=== PATIENT | male | born 1935 | race Caucasian/White ===

== ENCOUNTER 2017-08-11 10:01 | Emergency (ER) | payer OTHER, BC ==
[2017-08-11 10:09] VITALS: BP 145/89; TEMP 97.5; BMI 28.1
[2017-08-11] MEDS ORDERED: ACETAMINOPHEN 325 MG TABLET (FP) PO ONE (10:40)
[2017-08-11] MEDS ORDERED: ACETAMINOPHEN 325 MG TABLET (FP) ONE (10:48)
--- NOTE | 2017-08-11 10:48 | PDOC ---
History of Present Illness - History of Present Illness Initial Comments: 08/11/17 10:50 81 y/o M with a PMH of HTN, BPH presents to the ED with left sided chest pain for 3 days. Patient states that the pain is worse when lying down. He reports it is intermittent and reproducible. He states the pain does not radiate, and describes it as an achy, dull pain. He had a stress test earlier this year, which was normal. PCP: Dr. Riggs [employer] Curator: Dr. Man Shackler: Dr. Drummond <Natalya Young - Last Filed: 08/11/17 11:44> - General History Source: Patient Exam Limitations: No Limitations <Errol Pop - Last Filed: 08/11/17 12:17> - General Chief Complaint: Chest Pain Stated Complaint: CHEST DISCOMFORT Time Seen by Provider: 08/11/17 10:26 Past History <Natalya Young - Last Filed: 08/11/17 11:44> - Past Medical History COPD: No Disorders: Yes (BPH) HTN: Yes - Surgical History Abdominal Surgery: Yes (hernia repair) - Suicide/Smoking/Psychosocial Hx Smoking History: Never smoked Hx Alcohol Use: Yes (RARE) Drug/Substance Use Hx: No Substance Use Type: None <Errol Pop - Last Filed: 08/11/17 12:17> - Past Medical History Allergies/Adverse Reactions: Allergies Allergy/AdvReac Type Severity Reaction Status Date / Time No Known Allergies Allergy Verified 08/11/17 10:09 Home Medications: Ambulatory Orders Amlodipine Besylate [Norvasc -] 5 mg PO DAILY 03/01/14 Metoprolol Succinate [Toprol Xl] 100 mg PO DAILY 03/01/14 Doxazosin Mesylate 2 mg PO HS 08/11/17 Solifenacin Succinate [Vesicare -] 10 mg PO DAILY 08/11/17 Review of Systems - Review of Systems Comments:: 08/11/17 10:50 GENERAL/CONSTITUTIONAL: No fever or chills. No weakness. HEAD, EYES, EARS, NOSE AND THROAT: No change in vision. No ear pain or discharge. No sore throat. CARDIOVASCULAR: (+) left sided chest pain. No shortness of breath. RESPIRATORY: No cough, wheezing, or hemoptysis. GASTROINTESTINAL: No nausea, vomiting, diarrhea or constipation. GENITOURINARY: No dysuria, frequency, or change in urination. MUSCULOSKELETAL: No joint or muscle swelling or pain. No neck or back pain. SKIN: No rash NEUROLOGIC: No headache, vertigo, loss of consciousness, or change in strength/ sensation. ENDOCRINE: No increased thirst. No abnormal weight change. HEMATOLOGIC/LYMPHATIC: No anemia, easy bleeding, or history of blood clots. ALLERGIC/IMMUNOLOGIC: No hives or skin allergy. <Joey Youngdwight Brooks - Last Filed: 08/11/17 11:44> *Physical Exam - Vital Signs Last Vital Signs Temp Pulse Resp BP Pulse Ox 97.5 F L 79 18 145/89 98 08/11/17 10:05 08/11/17 10:05 08/11/17 10:05 08/11/17 10:05 08/11/17 10:05 - Physical Exam Comments: 08/11/17 10:50 GENERAL: Awake, alert, and fully oriented, in no acute distress HEAD: No signs of trauma EYES: PERRLA, EOMI, sclera anicteric, conjunctiva clear ENT: Auricles normal inspection, hearing grossly normal, nares patent, oropharynx clear without exudates. Moist mucosa NECK: Normal ROM, supple, no lymphadenopathy, JVD, or masses LUNGS: Breath sounds equal, clear to auscultation bilaterally. No wheezes, and no crackles HEART: Regular rate and rhythm, normal S1 and S2, no murmurs, rubs or gallops CHEST: Reproducible left upper chest pain ABDOMEN: Soft, nontender, normoactive bowel sounds. No guarding, no rebound. No masses EXTREMITIES: Normal range of motion, no edema. No clubbing or cyanosis. No cords, erythema, or tenderness NEUROLOGICAL: Cranial nerves II through XII grossly intact. Normal speech, normal gait SKIN: Warm, Dry, normal turgor, no rashes or lesions noted. <Joey Youngdwight Brooks - Last Filed: 08/11/17 11:44> - Vital Signs Last Vital Signs Temp Pulse Resp BP Pulse Ox 97.5 F L 79 18 145/89 98 08/11/17 10:05 08/11/17 10:05 08/11/17 10:05 08/11/17 10:05 08/11/17 10:05 <Errol Pop - Last Filed: 08/11/17 12:17> Heart Score/ECG Review - History History: Slightly suspicious - Electrocardiogram EKG: Normal - Age Age: >/= 65 - Risk Factors Risk Factors Heart Score: Yes Hx Hypertension Based on the list above the patient has:: 1-2 risk factors #1 ECG reviewed & interpreted by me at: 10:05 08/11/17 10:42 NSR 71, TWI III, no std/norman, normal axis, normal intervals, QTC 421 msec <Errol Pop - Last Filed: 08/11/17 12:17> ED Treatment Course - LABORATORY CBC & Chemistry Diagram: 08/11/17 10:43 08/11/17 10:43 - RADIOLOGY Radiograph Interpretation: 08/11/17 11:44 Chest XR reported by Dr. Ernesto Allen Impression: No acute chest pathology - Medications Given in the ED: ED Medications Discontinued Medications Generic Name Dose Route Start Last Admin Trade Name Freq PRN Reason Stop Dose Admin Acetaminophen 650 mg 08/11/17 10:40 08/11/17 10:47 Tylenol - PO 08/11/17 10:41 650 mg ONCE ONE Administration <Natalya Young A - Last Filed: 08/11/17 11:44> - LABORATORY CBC & Chemistry Diagram: 08/11/17 10:43 08/11/17 10:43 - RADIOLOGY Radiology Studies Ordered: Category Date Time Status CHEST X-RAY PORTABLE* [RAD] Stat Radiology 08/11/17 10:40 Ordered <Errol Pop - Last Filed: 08/11/17 12:17> Medical Decision Making - Medical Decision Making 08/11/17 10:42 A portion of this note was documented by scribe services under my direction. I have reviewed the details of the note, within reason, and agree with the documentation with the following case summary and management plan written by me. Patient treated in the ED. Nursing notes are reviewed and incorporated into the medical decision-making. Vital signs reviewed. Peripheral IV access obtained by the nurse, laboratory studies are drawn and sent, reviewed and interpreted by myself. Vital Signs Temp Pulse Resp BP Pulse Ox 97.5 F L 79 18 145/89 98 08/11/17 10:05 08/11/17 10:05 08/11/17 10:05 08/11/17 10:05 08/11/17 10:05 81-year-old male with history of hypertension, BPH presents with 3 days of left- sided chest pain. Patient reports that the pain is intermittent and reproducible. States that as an achy type pain that worsens with lying down and movement of his chest. Does not radiate. It is not associated with shortness of breath. Denies diaphoresis or vomiting. States that a recent stress test earlier this year by Dr. Clements that was reportedly negative. Denies fevers or chills. Patient's history and physical appears much more consistent to be atypical chest pain, likely muscle skeletal. EKG is reassuring and is negative. However, given the age, we'll send a troponin. Patient's chest pain seems also less likely Pericarditis. 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 08/11/17 12:14 CBC, BMP 08/11/17 10:43 08/11/17 10:43 CMP Sodium 140 mmol/L (136-145) 08/11/17 10:43 Potassium 4.2 mmol/L (3.5-5.1) 08/11/17 10:43 Chloride 104 mmol/L (98-107) 08/11/17 10:43 Carbon Dioxide 29 mmol/L (21-32) 08/11/17 10:43 Anion Gap 7 (8-16) L 08/11/17 10:43 BUN 19 mg/dL (7-18) H 08/11/17 10:43 Creatinine 1.1 mg/dL (0.7-1.3) 08/11/17 10:43 Creat Clearance w eGFR > 60 (>60) 08/11/17 10:43 Random Glucose 114 mg/dL (74-106) H 08/11/17 10:43 Calcium 8.4 mg/dL (8.5-10.1) L 08/11/17 10:43 Total Bilirubin 0.9 mg/dL (0.2-1.0) 08/11/17 10:43 AST 14 U/L (15-37) L D 08/11/17 10:43 ALT 21 U/L (12-78) D 08/11/17 10:43 Alkaline Phosphatase 89 U/L (45-117) 08/11/17 10:43 Creatine Kinase 61 IU/L (39-308) 08/11/17 10:43 Troponin I < 0.02 ng/ml (0.00-0.05) 08/11/17 10:43 Total Protein 7.0 g/dl (6.4-8.2) 08/11/17 10:43 Albumin 3.7 g/dl (3.4-5.0) 08/11/17 10:43 Chest xray reviewed. No acute findings. The patient's case was discussed with DR. Clements. He is agreeable for outpatient follow up after detailed discussion of case. The patient reports that he is agreeable with plan. Will go home with son. Discharge diagnosis: atypical chest pain I discussed the physical exam findings, ancillary test results and final diagnoses with the patient. I answered all of the patient's questions. The patient was satisfied with the care received and felt comfortable with the discharge plan and treatment plan. The patient will call their primary care physician within 24 hours to arrange follow-up and will return to the Emergency Department with any new, persistant or worsening symptoms. <Errol Pop - Last Filed: 08/11/17 12:17> *DC/Admit/Observation/Transfer - Attestations Scribe Attestion: 08/11/17 10:50 Documentation prepared by Natalya Young, acting as medical practitioners for Errol Pop MD. <Natalya Young - Last Filed: 08/11/17 11:44> - Discharge Dispostion Admit: No <Errol Pop - Last Filed: 08/11/17 12:17> Diagnosis at time of Disposition: Atypical chest pain - Discharge Dispostion Disposition: HOME Condition at time of disposition: Stable - Referrals Referrals: Gita Drummond MD [Staff Physician] - - Patient Instructions Printed Discharge Instructions: DI for Atypical Chest Pain Additional Instructions: Your EKG, chest x-ray, blood work including troponin is negative. I had spoken and discussed the case with your motion picture scene builder. He requests that he sees you this week. Please call on the next business day to schedule appointment. If you have recurrence of chest pain, please return to the ED for further evaluation. - Post Discharge Activity
[2017-08-11 11:02] VITALS: PULSE 71
[2017-08-11 11:13] LABS: BASO % 0.9 % (0-2.0); EOS % 2.9 % (0-4.5); HEMATOCRIT 46.5 % (35.4-49); HEMOGLOBIN 14.3 GM/dL (11.7-16.9); LYMPH % 15.9 % (8-40); MCHC 30.7 g/dl (32.0-35.9); MONO % 7.9 % (3.8-10.2); NEUT % 72.4 % (42.8-82.8); PLATELET COUNT 167 K/MM3 (134-434); RDW 16.7 % (11.9-15.9); WHITE BLOOD COUNT 9.5 K/mm3 (4.0-10.0)
[2017-08-11 11:31] LABS: ALBUMIN 3.7 g/dl (3.4-5.0); ANION GAP 7 (8-16); BILIRUBIN,TOTAL 0.9 mg/dL (0.2-1.0); BLOOD UREA NITROGEN 19 mg/dL (7-18); CALCIUM 8.4 mg/dL (8.5-10.1); CHLORIDE 104 mmol/L (98-107); CO2 29 mmol/L (21-32); CREATININE 1.1 mg/dL (0.7-1.3); GLUCOSE,RANDOM 114 mg/dL (74-106); POTASSIUM 4.2 mmol/L (3.5-5.1); SGOT/AST 14 U/L (15-37); SGPT/ALT 21 U/L (12-78); SODIUM 140 mmol/L (136-145)
[2017-08-11 11:33] LABS: ALK PHOS 89 U/L (45-117)
[2017-08-11 11:40] LABS: ADD RBC MORPHOLOGY YES; MCH 19.6 pg (25.7-33.7); RBC 7.27 M/mm3 (4.00-5.60)
[2017-08-11 12:05] LABS: ACANTHOCYTES FEW; ANISOCYTOSIS 2+; TARGET CELLS 2+
--- NOTE | 2017-08-11 14:50 | EKG ---
Test Reason : Blood Pressure : / mmHG Vent. Rate : 071 BPM Atrial Rate : 071 BPM P-R Int : 128 ms QRS Dur : 090 ms QT Int : 388 ms P-R-T Axes : 040 -28 -04 degrees QTc Int : 421 ms NORMAL SINUS RHYTHM NORMAL ECG WHEN COMPARED WITH ECG OF 02-OCT-2008 11:37, NO SIGNIFICANT CHANGE WAS FOUND Confirmed by ROSE MARIE KEITA MD ([id number]) on 08/11/2017 2:50:19 PM Referred By: Confirmed By:ROSE MARIE KEITA MD
== END 2017-08-11 12:46 | disposition home or self-care (01) ==
LOC: JER 10:01
DX: R07.89 Other chest pain (principal); I10 Essential (primary) hypertension; N40.0 Benign prostatic hyperplasia without lower urinary tract symptoms
CPT/HCPCS: 36415; 71010-TC; 80053; 82550; 84484; 85025; 93005; 93010; 99285-25

== ENCOUNTER 2021-03-30 10:32 | Emergency (ER) | payer OTHER, BC ==
[2021-03-30] MEDS ORDERED: LIDOCAINE 5% TOPICAL PATCH TP ONE (11:05)
[2021-03-30] MEDS ORDERED: ACETAMINOPHEN 325 MG TABLET (FP) PO ONE (11:05)
[2021-03-30 11:20] VITALS: BP 135/77; PULSE 81; TEMP 98.7; BMI 28.1
[2021-03-30] MEDS ORDERED: ACETAMINOPHEN 500 MG TABLET (FP) ONE (11:23)
[2021-03-30] MEDS ORDERED: LIDOCAINE 5% TOPICAL PATCH ONE (11:23)
[2021-03-30 12:17] LABS: ALBUMIN 4.1 g/dl (3.4-5.0); BILIRUBIN,TOTAL 0.9 mg/dl (0.2-1); CALCIUM 8.9 mg/dl (8.5-10); CREATININE 1.1 mg/dl (0.55-1.3); TOT PROT 6.9 g/dl (6.4-8.2)
[2021-03-30 12:31] LABS: ACTIVATED PTT 27.2 SECONDS (25.2-36.5)
[2021-03-30 12:32] LABS: HEMATOCRIT 41.3 % (35.4-49); HEMOGLOBIN 13.4 GM/dL (11.7-16.9); LYMPH % 13.3 % (8-40); MCH 20.8 pg (25.7-33.7); MCHC 32.4 g/dl (32.0-35.9); MEAN CELL VOLUME 64.4 fl (80-96); MEAN PLT VOLUME 10.5 fl (7.5-11.1); MONO % 6.8 % (3.8-10.2); NEUT % 76.9 % (42.8-82.8); PLATELET COUNT 185 10^3/uL (134-434); RBC 6.42 M/mm3 (4.00-5.60); RDW 16.6 % (11.9-15.9); WHITE BLOOD COUNT 9.7 K/mm3 (4.0-10.0)
[2021-03-30 12:36] LABS: INR 1.33 (0.82-1.09); PROTHROMBIN TIME (PATIENT) 14.6 SEC (10.2-13.0)
[2021-03-30 13:18] LABS: ANISOCYTOSIS 3+; MACROCYTOSIS 0; PLATELET ESTIMATE NORMAL; TARGET CELLS 1+; TEAR DROP CELLS 1+
== END 2021-03-30 13:43 | disposition home or self-care (01) ==
LOC: FER 10:32
DX: R07.89 Other chest pain (principal); V49.40XA Driver injured in collision with unspecified motor vehicles in traffic accident, initial encounter
CPT/HCPCS: 36415; 71260-TC; 80053; 82550; 84484; 85025; 85610; 85730; 93005; 99285-25